=== PATIENT | female | born 1940 | race Caucasian/White ===

== ENCOUNTER 2020-07-28 20:22 | Inpatient (IN) | payer MEDICARE ==
[~2020-07-28 20:22] MED LIST: Heparin 10,000 UNITS/ 10 ML VIAL ONE; Metoprolol Tartrate 5 MG/5 ML VIAL ONE
[2020-07-28] MEDS ORDERED: Metoprolol Tartrate 5 MG/5 ML VIAL ONE (20:29)
[2020-07-28 20:48] LABS: #Basophils 0.1 thou/uL (0.0-0.2); #Eosinphils 0.1 thou/uL (0.0-0.7); #Lymphocytes 2.4 thou/uL (1.20-3.40); #Monocytes 0.7 thou/uL (0.11-0.59); #Neutrophils 4.2 thou/uL (1.40-6.50); %Basophils 0.9 % (0.0-1.0); %Eosinophils 0.9 % (0.0-10.0); %Lymphocytes 32.3 % (21.0-51.0); %Monocytes 9.1 % (0.0-10.0); %Neutrophils 56.9 % (42.0-75.0); Hemoglobin 15.4 g/dL (12.0-16.0); Mean Corpuscular HGB CONC 33.4 g/dL (32.0-36.0); Mean Corpuscular Hemoglobin 32.7 pg (27.0-31.0); Mean Platelet Volume 6.4 fL (7.4-10.4); Platelet Count 303 thou/uL (130-400); RBC Distribution Width 11.2 % (11.5-14.5); White Blood Cell (WBC) Count 7.4 thou/uL (4.8-10.8)
[2020-07-28] MEDS ORDERED: Diltiazem HCl 125 MG, Admixture Fee 1 EACH in Sodium Chloride 0.9% 100 ML IVPB SCH (21:00)
[2020-07-28 21:09] LABS: ALT (SGPT) 16 U/L (8-55); AST (SGOT) 21 U/L (5-34); Albumin 4.2 g/dL (3.4-4.8); Alkaline Phosphatase 89 U/L (40-110); Anion Gap 16 mmol/L (10-20); BUN (Urea Nitrogen) 12 mg/dL (9.8-20.1); Bilirubin, Total 0.3 mg/dL (0.2-1.2); Calc. Creatinine Clearance 0 mL/min (70-130); Calcium 9.3 mg/dL (7.8-10.44); Carbon Dioxide 24 mmol/L (23-31); Chloride 100 mmol/L (98-107); Globulin 3.1 g/dL (2.4-3.5); Glucose 123 mg/dL (83-110); INR-International Normal Ratio 0.9; Magnesium 1.9 mg/dL (1.6-2.6); PTT 26.2 sec (22.9-36.1); Protein, Total 7.3 g/dL (6.0-8.3); Prothrombin Time 12.3 sec (12.0-14.7); Sodium 137 mmol/L (136-145)
[2020-07-28 21:10] LABS: D-Dimer Test 0.62 *mcg/mL (0.27-0.43)
[2020-07-28 21:14] LABS: Potassium 2.9 mmol/L (3.5-5.1)
[2020-07-28 21:30] LABS: CKMB 2.6 ng/mL (0-6.6)
[2020-07-28] MEDS ORDERED: Potassium Chloride 20 MEQ TAB ONE (21:43)
[2020-07-28] MEDS ORDERED: Magnesium 2 GM/50 ML BAG (IN WATER) ONE (21:43)
[2020-07-28] MEDS ORDERED: Potassium Chloride 10 MEQ in Premix Bag 1 BAG IVPB SCH (21:45)
[2020-07-28] MEDS ORDERED: Potassium Chloride 10 MEQ in Sodium Chloride 0.9% 250 ML 250 ML IVPB SCH (23:00)
[2020-07-28] MEDS ORDERED: Enoxaparin Sodium 80 MG/0.8 ML SYRINGE ONE (23:16)
[2020-07-29 01:04] LABS: Troponin I 2.195 ng/mL (< 0.028)
[2020-07-29 02:04] VITALS: BMI 28.3
[2020-07-29 05:38] LABS: Troponin I 3.127 ng/mL (< 0.028)
[2020-07-29 06:23] LABS: SARS-CoV-2 MS2 Positive; SARS-CoV-2 N Gene Negative; SARS-CoV-2 S Gene Negative; SARS-CoV-2 by NAA Not Detected (NotDetected); SARS-CoV-2 orf1ab Negative
[2020-07-29 07:34] LABS: #Basophils 0.1 thou/uL (0.0-0.2); #Eosinphils 0.1 thou/uL (0.0-0.7); #Lymphocytes 2.5 thou/uL (1.20-3.40); #Monocytes 0.8 thou/uL (0.11-0.59); #Neutrophils 4.1 thou/uL (1.40-6.50); %Basophils 1.1 % (0.0-1.0); %Eosinophils 1.6 % (0.0-10.0); %Neutrophils 54.3 % (42.0-75.0); Hemoglobin 13.5 g/dL (12.0-16.0); Mean Corpuscular HGB CONC 34.1 g/dL (32.0-36.0); Mean Corpuscular Hemoglobin 33.1 pg (27.0-31.0); Mean Platelet Volume 6.6 fL (7.4-10.4); Platelet Count 267 thou/uL (130-400); RBC Distribution Width 11.2 % (11.5-14.5); Red Blood Cell (RBC) Count 4.09 mill/uL (4.20-5.40); White Blood Cell (WBC) Count 7.5 thou/uL (4.8-10.8)
[2020-07-29 07:56] LABS: Anion Gap 13 mmol/L (10-20); BUN (Urea Nitrogen) 10 mg/dL (9.8-20.1); Calc. Creatinine Clearance 81 mL/min (70-130); Calcium 9.2 mg/dL (7.8-10.44); Carbon Dioxide 25 mmol/L (23-31); Chloride 105 mmol/L (98-107); Glucose 89 mg/dL (83-110); Magnesium 2.2 mg/dL (1.6-2.6); Potassium 4.1 mmol/L (3.5-5.1); Sodium 139 mmol/L (136-145)
[2020-07-29] MEDS: Aspirin 81 mg Enteric Coated Tablet PO SCH (08:27)
[2020-07-29] MEDS: Enoxaparin Sodium 80 MG/0.8 ML SYRINGE SC SCH ×2 (08:27→21:24)
[2020-07-29] MEDS: ALPRAZolam 0.5 MG TAB PO SCH ×3 (08:27→21:15)
[2020-07-29] MEDS: Potassium Chloride 20 MEQ TAB PO SCH (08:27)
[2020-07-29] MEDS: Multivit, Therapeutic 1 TAB PO SCH (08:27)
[2020-07-29] MEDS: Vit A,C & E/Lutein/Minerals Tablet PO SCH (08:27)
--- NOTE | 2020-07-29 08:30 | RAD ---
PORTABLE CHEST: HISTORY: Chest pain. COMPARISON: 06/22/2018. FINDINGS: Lungs appear clear of infiltrate. Vasculature within normal range. Heart size upper normal with pro minent aortic calcification, unchanged from prior exam. No interval change noted. IMPRESSION: No acute finding. POS: AGW
[2020-07-29] MEDS ORDERED: Non-Formulary Item 1 EACH (Levothyroxine Sodium [Levothyroxine] 100 MCG Capsule) PO SCH (09:00)
--- NOTE | 2020-07-29 10:28 | CON ---
DATE OF CONSULTATION: HISTORY OF PRESENT ILLNESS: The patient is a 79-year-old woman with a history of peripheral vascular disease, who presented with palpitations and chest discomfort. The patient has a previous history of peripheral vascular disease. She was seen 2 years ago and underwent an evaluation. She was found on aortogram to have severe disease in both iliac arteries. The patient was seen in 2018 also with poorly- controlled hypertension. The patient has been on medical therapy. She reports that she has occasional episodes of chest discomfort. These seem to be improved when she takes antacid medication. She also reports having occasional palpitations. The patient was scheduled for Cardiology followup. On the day of admission, the patient developed severe midsternal chest pain, radiating to her left arms. She noted also having rapid palpitations and dizziness. The patient was admitted for further evaluation. The patient has multiple cardiac risk factors including hypertension and dyslipidemia. PAST MEDICAL HISTORY: 1. Lung carcinoma. 2. Colon carcinoma. 3. Renal artery stenosis. 4. Hypertension. 5. Anxiety disorder. PAST SURGICAL HISTORY: Ankle surgery, colorectal surgery, lung surgery, and hernia repair. SOCIAL HISTORY: Long history of tobacco abuse. Quit 10 years ago. FAMILY HISTORY: Positive family history of coronary artery disease. ALLERGIES: STATINS. MEDICATIONS ON ADMISSION: 1. Metoprolol 100 at bedtime. 2. Synthroid 100 daily. 3. Alprazolam 0.5 t.i.d. 4. Aspirin 81 daily. 5. Zetia 10 daily. REVIEW OF SYSTEMS: Ten-point systems otherwise unremarkable. PHYSICAL EXAMINATION: GENERAL: Well-developed woman, in no acute distress. VITAL SIGNS: Blood pressure was 126/60. NECK: Showed no jugular venous distention. LUNGS: Clear to auscultation. HEART: Regular rate and rhythm. Normal S1, S2. No murmurs. ABDOMEN: Nondistended. EXTREMITIES: Showed no edema. VASCULAR: Distal pulses were not palpable. Her femoral pulse was 1+. LABORATORY DATA: White blood cell count was 7.5, hemoglobin 13.5, hematocrit 39.6, and platelets are 267. Sodium was 139, potassium 4.1, chloride 105, bicarbonate 25, BUN 10, creatinine 0.69, glucose is 82. The troponin was 3.2. BNP is 217. Initial EKG revealed rapid atrial fibrillation with a marked ST-T wave abnormality, suggestive of ischemia. Followup EKG revealed sinus bradycardia with ST depression, suggestive of lateral ischemia. IMPRESSION: 1. New-onset atrial fibrillation. 2. Dhu-ZO-zkreike elevation myocardial infarction. 3. Peripheral vascular disease. 4. Hypertension. 5. Dyslipidemia. 6. History of lung carcinoma. 7. Chronic obstructive pulmonary disease. This patient presented with rapid atrial fibrillation and myocardial infarction. She has severe peripheral vascular disease. The patient converted back to sinus rhythm. She is being treated with aspirin and Lovenox. She will continue with beta- callie therapy. We will check an echocardiogram. We will follow this patient with you through her hospitalization. Job ID: [id number] [facility]
[2020-07-29 11:54] LABS: Critical Call Chem Troponin I RESULT DECREASING; Troponin I 2.893 ng/mL (< 0.028)
[2020-07-29] MEDS ORDERED: Ondansetron PF 4 MG/2 ML Vial IVP PRN (15:33)
--- NOTE | 2020-07-29 16:11 | EKG ---
Test Reason : Blood Pressure : / mmHG Vent. Rate : 055 BPM Atrial Rate : 055 BPM P-R Int : 184 ms QRS Dur : 088 ms QT Int : 452 ms P-R-T Axes : 079 029 108 degrees QTc Int : [address] depression, consider subendocardial injury or digitalis effect Abnormal QRS-T angle, consider primary T wave abnormality Abnormal ECG When compared with ECG of 28-JUL-2020 21:39, (Unconfirmed) Incomplete right bundle branch block is no longer Present Confirmed by DR. Eliel ASHLEY ([id number]) on 07/29/2020 4:11:29 PM Referred By: DIOR Confirmed By:DR. Eliel ASHLEY
[2020-07-29 18:01] LABS: Bacteria/HPF None Seen HPF (None Seen); Bilirubin Negative (Negative); Blood, Urine Negative (Negative); Clarity Clear (Clear); Glucose, Urine (Dipstick) Normal (Negative); Ketone, Urine Negative (Negative); Leukocyte Negative Leu/uL (Negative); Nitrite Negative (Negative); Protein, Urine (Dipstick) Negative (Neg-Trace); RBC/HPF 0-3 HPF (0-3); Specific Gravity, Urine 1.009 (1.002-1.036); Squamous Epithelial 0-3 HPF (0-3); Urobilinogen Normal mg/dL (Less than 2); WBC/HPF 0-3 HPF (0-3); pH, Urine 6.5 (5.0-9.0)
[2020-07-29 18:07] LABS: Urine Culture Reflex No No
[2020-07-29] MEDS: Ezetimibe 10 MG TAB PO SCH (21:15)
[2020-07-29] MEDS: Famotidine 20 MG TAB PO SCH (21:15)
--- NOTE | 2020-07-30 00:56 | HP ---
CHIEF COMPLAINT: Indigestion, chest tightness. HISTORY OF PRESENT ILLNESS: Patient is a 79-year-old female with a history of colon cancer and lung cancer, came into the hospital with complaints of chest tightness and shortness of breath. The patient at this time states that she has been having indigestion which has been going on for sometime. However, this time, she felt very tight pressure-like sensation which did not go away. She states that normally she will take antacids and that will usually help to relieve her, however, at this time, she was unable to do so. She has noted a few weeks back that she had some palpitations. However, at this time, she belched and her palpitation improved. She did go to her primary care doctor who then referred her to Cardiology. She states that she has been on 3 rounds of antibiotics; first was Macrobid, second was Keflex, and third was Cipro; however, she had to stop Cipro due to side effects. She currently denies any urinary frequency or any dysuria. PAST MEDICAL HISTORY: She has a history of hypercholesterolemia, hypothyroidism, hypertension, colorectal cancer in 2007, lung cancer in 2009, and hernia x2. PAST SURGICAL HISTORY: She has had a colectomy with colostomy. She has also had lung surgery and status post chemotherapy, no radiation and hernia surgery. SOCIAL HISTORY: She denies any alcohol use, drug use. She is a former smoker. She lives at home with her family and she is a full code. FAMILY HISTORY: Patient's brothers had bypasses, however, no history of heart disease in her family. ALLERGIES: SHE IS ALLERGIC TO MORPHINE AND PENICILLIN. MEDICATIONS: 1. Alprazolam 0.5 mg daily. 2. Losartan 100 mg daily. 3. Levothyroxine 100 mcg daily. 4. Metoprolol 100 mg daily. 5. Chlorthalidone 25 mg daily. 6. Zetia 10 mg as needed. 7. Aspirin 81 mg daily. PHYSICAL EXAMINATION: VITAL SIGNS: Temperature of 100% on room air 16. Initially pulse was 120, currently it is 70. Blood pressure 159/84. GENERAL: She is awake, alert, and oriented x3. Does not appear in distress. HEENT: Normocephalic, atraumatic. No lymphadenopathy noted. CARDIOVASCULAR: She is irregularly irregular, however, rate controlled. LUNGS: Clear to auscultation. No rhonchi or wheezes noted. ABDOMEN: Soft, nontender. Bowel sounds are present x2. She has a colostomy bag. EXTREMITIES: Lower extremity, no edema. Pedal pulses are present x2. LABORATORY RESULTS: WBCs of 7.9, hemoglobin of 13.5, hematocrit of 39.6, platelets of 267. Chemistries; sodium of 139, potassium 4.1, BUN of 10, creatinine 0.69. Her troponin initially was 0.042, went up to highest of 3.22. She also had a TSH that was done which was 0.0224. She had a chest x-ray done, which indicated no acute findings. She also had an EKG which did not show any acute ST elevation. She has had some sinus nichelle. ASSESSMENT AND PLAN: The patient is a very pleasant 79-year-old female who presents to the hospital with complaints of shortness of breath and chest pain. 1. Atrial fibrillation with rapid ventricular response. Her rate was controlled on Cardizem. She was on full-dose Lovenox. We will get Cardiology to see. Her echo has been ordered. Her TSH is very low. I will decrease her thyroid medication from 100 mcg to 75 mcg. 2. Chest tightness and indigestion. This could be secondary to atrial fibrillation, however, given her risk factors, I believe further workup is warranted including possible even a cardiac catheterization. I will leave this up to Cardiology. 3. Hypothyroidism. Her TSH is very low. I will decrease her Synthroid from 100 mcg to 75 mcg. 4. Hypertension. We will continue her home medications. 5. Blood in the urine. She stated that she had blood in the urine and that is why she was put on antibiotics. I have ordered a urine sample here and clearly it is normal. 6. Deep venous thrombosis. Patient is already on Lovenox full dose and we will continue that. Job ID: [id number]
[2020-07-30] MEDS ORDERED: Lidocaine 2% Viscous Solution 10 ML, Aluminum & Magnesium Hydroxide 30 ML SSW SCH (01:30)
[2020-07-30 04:22] LABS: #Eosinphils 0.1 thou/uL (0.0-0.7); #Lymphocytes 2.1 thou/uL (1.20-3.40); #Monocytes 0.5 thou/uL (0.11-0.59); %Basophils 0.7 % (0.0-1.0); %Eosinophils 1.9 % (0.0-10.0); %Monocytes 10.2 % (0.0-10.0); %Neutrophils 42.3 % (42.0-75.0); Hemoglobin 12.7 g/dL (12.0-16.0); Mean Corpuscular HGB CONC 34.4 g/dL (32.0-36.0); Mean Corpuscular Hemoglobin 33.3 pg (27.0-31.0); Mean Corpuscular Volume 96.9 fL (78.0-98.0); Mean Platelet Volume 6.7 fL (7.4-10.4); Platelet Count 255 thou/uL (130-400); RBC Distribution Width 11.2 % (11.5-14.5); White Blood Cell (WBC) Count 4.6 thou/uL (4.8-10.8)
[2020-07-30 04:50] LABS: Anion Gap 13 mmol/L (10-20); BUN (Urea Nitrogen) 9 mg/dL (9.8-20.1); Calc. Creatinine Clearance 77 mL/min (70-130); Calcium 8.9 mg/dL (7.8-10.44); Carbon Dioxide 25 mmol/L (23-31); Chloride 104 mmol/L (98-107); Glucose 91 mg/dL (83-110); Potassium 3.5 mmol/L (3.5-5.1); Sodium 138 mmol/L (136-145)
[2020-07-30 04:57] LABS: Thyroid Stimulating Hormone 0.0282 uIU/mL (0.35-4.94)
[2020-07-30] MEDS: Levothyroxine Sodium 75 MCG TAB PO SCH (05:53)
[2020-07-30 06:36] LABS: Free T4 (Free Thyroxine) 1.28 ng/dL (0.70-1.48)
[2020-07-30] MEDS: Multivit, Therapeutic 1 TAB PO SCH (08:27)
[2020-07-30] MEDS: ALPRAZolam 0.5 MG TAB PO SCH ×3 (08:27→21:58)
[2020-07-30] MEDS: Famotidine 20 MG TAB PO SCH (08:27)
[2020-07-30] MEDS: Potassium Chloride 20 MEQ TAB PO SCH (08:27)
[2020-07-30] MEDS: Aspirin 81 mg Enteric Coated Tablet PO SCH (08:27)
[2020-07-30] MEDS: Enoxaparin Sodium 80 MG/0.8 ML SYRINGE SC SCH ×2 (08:29→21:58)
[2020-07-30] MEDS: Vit A,C & E/Lutein/Minerals Tablet PO SCH (08:29)
--- NOTE | 2020-07-30 11:48 | CT ---
CTA ABDOMEN AND PELVIS AND BILATERAL LOWER EXTREMITIES FOLLOWING A CTA RUNOFF PROTOCOL WITH IV ENHANC EMENT: Multiplanar, multisequential imaging obtained with multiplanar reconstruction and 3D post processing. INDICATION: Peripheral vascular disease. COMPARISON: Comparison is made to CTA runoff procedure of 06/24/2018. FINDINGS: Abdominal aorta shows diffuse atherosclerotic changes and mild ectasia, unchanged from 2018. There i s atherosclerotic calcification with moderate stenosis at the origin of the celiac artery and mild st enosis at the origin of the superior mesenteric artery. These findings are stable. Atherosclerotic calcification at the origin of the right renal artery with moderate stenosis which is stable. No left renal artery stenosis seen. Diffuse atherosclerotic calcification at the aortic bifurcation. 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 There is high-grade stenosis at this location of the left common iliac which appears stable. LEFT LOWER EXTREMITY: The left internal and external iliacs are patent with diffuse atherosclerotic change. Left common femoral shows atherosclerotic change but is patent. Profunda is patent. The left superf icial femoral artery is patent with mild disease in its mid portion without high-grade stenosis. Atherosclerotic calcification with moderate stenosis at the popliteal artery at the joint space. Popliteal trifurcates below the joint space. The peroneal appears to occlude mid calf. Anterior tib ial and posterior tibial are patent to the ankle. RIGHT LOWER EXTREMITY: Right internal and external iliacs are patent with atherosclerotic change. The right common femoral shows atherosclerotic change but patent without significant stenosis. Profunda femoral is patent. Right superficial femoral artery is patent without significant stenosis. Mild stenosis at Cornell's canal. Popliteal shows atherosclerotic change without significant stenosis. Popliteal trifurcates and there is 3-vessel runoff to the ankle. Soft tissue evaluation shows hepatic cysts in the left lobe along the falciform fissure which is stab le. The spleen and pancreas are unremarkable and stable. The left adrenal nodule described previously measuring 11 mm is unchanged. The large cyst in the anterior right kidney is again noted ad is unchanged. This is measured at 7 cm . Numerous cysts from the inferior right kidney appear stable. Several small cysts in the left kidn ey are also stable with the largest seen anteriorly measuring approximately 2 cm. The anterior abdominal wall hernia to the left ob midline was described previously and is again seen. Bowel loops herniate through this defect into the subcutaneous tissue. There is an ostomy at this site with a parastomal hernia. Not significantly changed. No evidence of bowel obstruction or stran gulation. IMPRESSION: 1. Diffuse atherosclerotic disease of the abdominal aorta, aortic bifurcation, and iliac arteries. There is a high-grade stenosis in the left common iliac which is similar to the prior exam. 2. Numerous other abdominal findings appear stable. Right hepatic cyst, bilateral renal cysts, righ t adrenal nodule, and anterior abdominal wall hernia all again noted. POS: AGW
[2020-07-30] MEDS ORDERED: Iopamidol-370 76% 500 ML 1 ML ONE (14:24)
--- NOTE | 2020-07-30 17:09 | PDOC.HOSPP ---
- Subjective Encounter Date: 07/30/20 (f/u a fib with rvr) Encounter Time: 17:07 Subjective: Pt denies any complaints. She reports long-standing leg pain (knee to foot) from chemotherapy - no meds taken for this. She reports pain in her hips/upper legs at times with exertion that is relieved by rest. She denies n/v/abd pain. - Objective Vital Signs & Weight: Vital Signs (12 hours) Temp Pulse Resp BP Pulse Ox 07/30/20 12:00 98.0 F 52 L 16 135/64 98 07/30/20 08:25 95 07/30/20 08:23 98.4 F 58 L 16 147/66 H 98 Weight Weight 162 lb I&O: 07/29/20 07/30/20 07/31/20 06:59 06:59 06:59 Intake Total 260 180 Balance 260 180 Result Diagrams: 07/30/20 03:58 07/30/20 03:58 EKG Reviewed by me: Yes (tele - sinus 50-60's) Hospitalist ROS - Medication Medications: Active Medications Generic Name Dose Route Start Last Admin Trade Name Bryceq PRN Reason Stop Dose Admin Alprazolam 0.5 mg 07/29/20 09:00 07/30/20 15:22 Alprazolam 0.5 Mg Tab PO 0.5 mg TID ANUP Administration Aspirin 81 mg 07/29/20 09:00 07/30/20 08:27 Aspirin 81 Mg Enteric Coated Tablet PO 81 mg DAILY ANUP Administration Ezetimibe 10 mg 07/29/20 21:00 07/29/20 21:15 Ezetimibe 10 Mg Tab PO 10 mg HS ANUP Administration Enoxaparin Sodium 70 mg 07/29/20 09:00 07/30/20 08:29 Enoxaparin Sodium 80 Mg/0.8 Ml Syringe SC 70 mg 0900,2100 ANUP Administration Levothyroxine Sodium 75 mcg 07/30/20 06:00 07/30/20 05:53 Levothyroxine Sodium 75 Mcg Tab PO 75 mcg 0600 ANUP Administration Metoprolol Succinate 100 mg 07/29/20 21:00 07/29/20 21:16 Metoprolol Succinate Xl 100 Mg Tab PO 100 mg HS ANUP Administration Multivitamins 1 tab 07/29/20 09:00 07/30/20 08:27 Multivit, Therapeutic 1 Tab PO 1 tab DAILY ANUP Administration Multivitamins/Minerals 1 tab 07/29/20 09:00 07/30/20 08:29 Vit A,C & E/Lutein/Minerals Tablet PO 1 tab DAILY ANUP Administration Potassium Chloride 20 meq 07/29/20 09:00 07/30/20 08:27 Potassium Chloride 20 Meq Tab PO 08/02/20 09:01 20 meq DAILY ANUP Administration - Exam General Appearance: NAD Heart: RRR, no murmur Respiratory: CTAB, no wheezes Gastrointestinal: soft, non-tender, non-distended, normal bowel sounds Extremities: no cyanosis, no clubbing, no edema Psychiatric: normal affect Hosp A/P (1) NSTEMI (non-ST elevated myocardial infarction) Code(s): I21.4 - NON-ST ELEVATION (NSTEMI) MYOCARDIAL INFARCTION Status: Acute (2) Atrial fibrillation with RVR Code(s): I48.91 - UNSPECIFIED ATRIAL FIBRILLATION Status: Acute (3) Hypothyroid Code(s): E03.9 - HYPOTHYROIDISM, UNSPECIFIED Status: Chronic Qualifiers: Hypothyroidism type: unspecified Qualified Code(s): E03.9 - Hypothyroidism, unspecified (4) Peripheral vascular disease Code(s): I73.9 - PERIPHERAL VASCULAR DISEASE, UNSPECIFIED Status: Chronic (5) Dyslipidemia Code(s): E78.5 - HYPERLIPIDEMIA, UNSPECIFIED Status: Chronic - Plan A fib with RVR - resolved - appreciate cards consult - on beta-callie NSTEMI - has completed 1st part of stress test - on aspirin, statin, beta-callie - echo completed - mild/mod MR and TR with diastolic dysfunction PVD - defer to Cardiology on timing of further evaluation/tx GERD - change to protonix with prn tums Severe neuropathy - pt declines pain meds Hypothyroid - on replacement and over-tx based on low TSH. Medication dose lowered at admission - recommend f/u TSH in 6 weeks. dvt prophy - not needed, is fully anticoagulated with lovenox gi prophy - on protonix for sx code status full reviewed plan of care with patient, no questions or further needs at end of eval.
[2020-07-30] MEDS: Ezetimibe 10 MG TAB PO SCH (21:58)
[2020-07-30] MEDS: Calcium Carbonate 500 MG ChewTAB PO PRN (22:06)
[2020-07-31 04:42] LABS: Anion Gap 13 mmol/L (10-20); BUN (Urea Nitrogen) 9 mg/dL (9.8-20.1); Calc. Creatinine Clearance 78 mL/min (70-130); Calcium 9.5 mg/dL (7.8-10.44); Carbon Dioxide 26 mmol/L (23-31); Chloride 104 mmol/L (98-107); Glucose 92 mg/dL (83-110); Potassium 3.6 mmol/L (3.5-5.1); Sodium 139 mmol/L (136-145)
[2020-07-31] MEDS: Levothyroxine Sodium 75 MCG TAB PO SCH (05:20)
[2020-07-31] MEDS: Potassium Chloride 20 MEQ TAB PO SCH (08:11)
[2020-07-31] MEDS: ALPRAZolam 0.5 MG TAB PO SCH ×3 (08:12→20:28)
[2020-07-31] MEDS: Enoxaparin Sodium 80 MG/0.8 ML SYRINGE SC SCH (08:12)
[2020-07-31] MEDS: Vit A,C & E/Lutein/Minerals Tablet PO SCH (08:12)
[2020-07-31] MEDS: Multivit, Therapeutic 1 TAB PO SCH (08:12)
[2020-07-31] MEDS: Aspirin 81 mg Enteric Coated Tablet PO SCH (08:12)
--- NOTE | 2020-07-31 12:53 | PDOC.HOSPP ---
- Subjective Encounter Date: 07/31/20 (f/u nstemi) Encounter Time: 12:51 Subjective: Pt is without complaints. She reports reflux is better today, did require tums last night. Denies any current cp/n/v/abd pain. - Objective Vital Signs & Weight: Vital Signs (12 hours) Temp Pulse Resp BP Pulse Ox 07/31/20 11:33 98.3 F 62 18 150/67 H 100 07/31/20 07:26 97.9 F 55 L 18 134/62 96 07/31/20 04:00 98.3 F 56 L 16 137/63 95 Weight Weight 165 lb 8 oz I&O: 07/30/20 07/31/20 08/01/20 06:59 06:59 06:59 Intake Total 180 Balance 180 Result Diagrams: 07/30/20 03:58 07/31/20 04:02 EKG Reviewed by me: Yes (tele - sinus 50-70's, no alarms) Hospitalist ROS - Medication Medications: Active Medications Generic Name Dose Route Start Last Admin Trade Name Freq PRN Reason Stop Dose Admin Alprazolam 0.5 mg 07/29/20 09:00 07/31/20 08:12 Alprazolam 0.5 Mg Tab PO 0.5 mg TID ANUP Administration Aspirin 81 mg 07/29/20 09:00 07/31/20 08:12 Aspirin 81 Mg Enteric Coated Tablet PO 81 mg DAILY ANUP Administration Calcium Carbonate 1,000 mg 07/30/20 14:36 07/30/20 22:06 Calcium Carbonate 500 Mg Chewtab PO 1,000 mg DAILYPRN PRN Administration Heartburn or Indigestion Ezetimibe 10 mg 07/29/20 21:00 07/30/20 21:58 Ezetimibe 10 Mg Tab PO 10 mg HS ANUP Administration Enoxaparin Sodium 70 mg 07/29/20 09:00 07/31/20 08:12 Enoxaparin Sodium 80 Mg/0.8 Ml Syringe SC 70 mg 0900,2100 ANUP Administration Levothyroxine Sodium 75 mcg 07/30/20 06:00 07/31/20 05:20 Levothyroxine Sodium 75 Mcg Tab PO 75 mcg 0600 ANUP Administration Metoprolol Succinate 100 mg 07/29/20 21:00 07/30/20 21:58 Metoprolol Succinate Xl 100 Mg Tab PO 100 mg HS ANUP Administration Multivitamins 1 tab 07/29/20 09:00 07/31/20 08:12 Multivit, Therapeutic 1 Tab PO 1 tab DAILY ANUP Administration Multivitamins/Minerals 1 tab 07/29/20 09:00 07/31/20 08:12 Vit A,C & E/Lutein/Minerals Tablet PO 1 tab DAILY ANUP Administration Pantoprazole Sodium 40 mg 07/30/20 21:00 07/30/20 21:58 Pantoprazole 40 Mg Tab PO 40 mg HS ANUP Administration Potassium Chloride 20 meq 07/29/20 09:00 07/31/20 08:11 Potassium Chloride 20 Meq Tab PO 08/02/20 09:01 20 meq DAILY ANUP Administration - Exam General Appearance: NAD Heart: RRR, no murmur Respiratory: CTAB, no wheezes, no rales, no ronchi Gastrointestinal: soft, non-tender, non-distended, normal bowel sounds Extremities: no cyanosis, no clubbing, no edema Psychiatric: normal affect Hosp A/P (1) NSTEMI (non-ST elevated myocardial infarction) Code(s): I21.4 - NON-ST ELEVATION (NSTEMI) MYOCARDIAL INFARCTION Status: Acute (2) Atrial fibrillation with RVR Code(s): I48.91 - UNSPECIFIED ATRIAL FIBRILLATION Status: Resolved (3) Hypothyroid Code(s): E03.9 - HYPOTHYROIDISM, UNSPECIFIED Status: Chronic Qualifiers: Hypothyroidism type: unspecified Qualified Code(s): E03.9 - Hypothyroidism, unspecified (4) Peripheral vascular disease Code(s): I73.9 - PERIPHERAL VASCULAR DISEASE, UNSPECIFIED Status: Chronic (5) Dyslipidemia Code(s): E78.5 - HYPERLIPIDEMIA, UNSPECIFIED Status: Chronic - Plan A fib with RVR - resolved - appreciate cards consult -continue beta-callie NSTEMI - stress test completed, not resulted - on aspirin, zetia, beta-callie - echo completed - mild/mod MR and TR with diastolic dysfunction PVD - defer to Cardiology on timing of further evaluation/tx GERD - continue scheduled protonix and prn tums Severe neuropathy - pt declines pain meds Hypothyroid - on replacement and over-tx based on low TSH. Medication dose lowered at admission - recommend f/u TSH in 6 weeks. dvt prophy - not needed, is fully anticoagulated with lovenox gi prophy - on protonix for sx code status full reviewed plan of care with patient, no questions or further needs at end of eval. anticipate discharge when cleared by cardiology
--- NOTE | 2020-07-31 13:03 | NM ---
EXAM: Nuclear Medicine Cardiac SPECT with EF and wall motion: HISTORY: Chest pain, dyslipidemia, hypertension, history of peripheral vascular disease Protocol: Exam was performed using Lexiscan protocol. The patient is injected with 31.7 millicuries of technetium 99m sestamibi intravenously for stress im ages. The patient is injected with 9.0 millicuries of technetium 99 sestamibi intravenously for resting lisette ges. Multiple SPECT images are performed in the short axis, vertical long axis, and horizontal long axis. FINDINGS: Decreased activity on both stress and rest images in the inferior posterior wall more towards the car diac base. This appears to be primarily infarct. TID:1.12 LHR:0.50 EDV:77 mL EF:66% Wall motion:No significant focal wall motion abnormalities IMPRESSION: Evidence for infarct changes in the inferior posterior wall.
[2020-07-31] MEDS ORDERED: Regadenoson 0.4 MG/5 ML SYRINGE ONE (13:38)
[2020-07-31] MEDS ORDERED: Communication Order-Pharmacy FS SCH (14:30)
[2020-07-31] MEDS: Calcium Carbonate 500 MG ChewTAB PO PRN (17:26)
[2020-07-31] MEDS: Ezetimibe 10 MG TAB PO SCH (20:28)
[2020-08-01 05:39] LABS: Anion Gap 11 mmol/L (10-20); BUN (Urea Nitrogen) 14 mg/dL (9.8-20.1); Calc. Creatinine Clearance 83 mL/min (70-130); Calcium 9.2 mg/dL (7.8-10.44); Carbon Dioxide 27 mmol/L (23-31); Chloride 104 mmol/L (98-107); Glucose 82 mg/dL (83-110); Potassium 3.4 mmol/L (3.5-5.1); Sodium 139 mmol/L (136-145)
[2020-08-01] MEDS: Potassium Chloride 20 MEQ TAB PO SCH (05:51)
[2020-08-01] MEDS: Vit A,C & E/Lutein/Minerals Tablet PO SCH (05:52)
[2020-08-01] MEDS: Multivit, Therapeutic 1 TAB PO SCH (05:52)
[2020-08-01] MEDS: ALPRAZolam 0.5 MG TAB PO SCH ×3 (05:52→21:59)
[2020-08-01] MEDS: Levothyroxine Sodium 75 MCG TAB PO SCH (05:52)
[2020-08-01] MEDS: Aspirin 81 mg Enteric Coated Tablet PO SCH (05:52)
--- NOTE | 2020-08-01 09:04 | PDOC.HOSPP ---
- Subjective Encounter Date: 08/01/20 (f/u nstemi) Encounter Time: 09:02 Subjective: Patient was admitted for atrial fibrillation and NSTEMI. She has been on full dose lovenox, beta-callie, and aspirin. Stress test yesterday was abnormal, and cath planned today. Pt tired this morning. She denies any chest pain.She reports the GERD is better. She does note swelling since being off of her home anti-htn/diuretic. - Objective Vital Signs & Weight: Vital Signs (12 hours) Temp Pulse Resp BP Pulse Ox 08/01/20 07:10 98.1 F 46 L 16 139/60 100 08/01/20 03:37 98.1 F 61 19 111/53 L 97 Weight Weight 166 lb 14.4 oz I&O: 07/31/20 08/01/20 08/02/20 06:59 06:59 06:59 Intake Total 360 Balance 360 Result Diagrams: 07/30/20 03:58 08/01/20 04:00 EKG Reviewed by me: Yes (tele - sinus 50's, was in the 40's early today) Hospitalist ROS - Medication Medications: Active Medications Generic Name Dose Route Start Last Admin Trade Name Freq PRN Reason Stop Dose Admin Alprazolam 0.5 mg 07/29/20 09:00 08/01/20 05:52 Alprazolam 0.5 Mg Tab PO 0.5 mg TID ANUP Administration Aspirin 81 mg 07/29/20 09:00 08/01/20 05:52 Aspirin 81 Mg Enteric Coated Tablet PO 81 mg DAILY ANUP Administration Calcium Carbonate 1,000 mg 07/30/20 14:36 07/31/20 17:26 Calcium Carbonate 500 Mg Chewtab PO 1,000 mg DAILYPRN PRN Administration Heartburn or Indigestion Ezetimibe 10 mg 07/29/20 21:00 07/31/20 20:28 Ezetimibe 10 Mg Tab PO 10 mg HS ANUP Administration Levothyroxine Sodium 75 mcg 07/30/20 06:00 08/01/20 05:52 Levothyroxine Sodium 75 Mcg Tab PO 75 mcg 0600 ANUP Administration Metoprolol Succinate 100 mg 07/29/20 21:00 07/31/20 20:28 Metoprolol Succinate Xl 100 Mg Tab PO 100 mg HS ANUP Administration Multivitamins 1 tab 07/29/20 09:00 08/01/20 05:52 Multivit, Therapeutic 1 Tab PO 1 tab DAILY ANUP Administration Multivitamins/Minerals 1 tab 07/29/20 09:00 08/01/20 05:52 Vit A,C & E/Lutein/Minerals Tablet PO 1 tab DAILY ANUP Administration Pantoprazole Sodium 40 mg 07/30/20 21:00 07/31/20 20:28 Pantoprazole 40 Mg Tab PO 40 mg HS ANUP Administration Potassium Chloride 20 meq 07/29/20 09:00 08/01/20 05:51 Potassium Chloride 20 Meq Tab PO 08/02/20 09:01 20 meq DAILY ANUP Administration - Exam General Appearance: NAD Heart: RRR, no murmur Respiratory: CTAB, no wheezes, no rales, no ronchi Gastrointestinal: soft, non-tender, non-distended, normal bowel sounds Extremities - other findings: trace pitting edema bilateral Psychiatric: normal affect Hosp A/P (1) NSTEMI (non-ST elevated myocardial infarction) Code(s): I21.4 - NON-ST ELEVATION (NSTEMI) MYOCARDIAL INFARCTION Status: Acute (2) Atrial fibrillation with RVR Code(s): I48.91 - UNSPECIFIED ATRIAL FIBRILLATION Status: Resolved (3) Hypothyroid Code(s): E03.9 - HYPOTHYROIDISM, UNSPECIFIED Status: Chronic Qualifiers: Hypothyroidism type: unspecified Qualified Code(s): E03.9 - Hypothyroidism, unspecified (4) Peripheral vascular disease Code(s): I73.9 - PERIPHERAL VASCULAR DISEASE, UNSPECIFIED Status: Chronic (5) Dyslipidemia Code(s): E78.5 - HYPERLIPIDEMIA, UNSPECIFIED Status: Chronic - Plan A fib with RVR - resolved - appreciate cards consult -continue beta-callie NSTEMI - awaiting cath today due to abnormal stress test - on aspirin, zetia, beta-callie - echo completed - mild/mod MR and TR with diastolic dysfunction PVD - defer to Cardiology on timing of further evaluation/tx GERD - continue scheduled protonix and prn tums Severe neuropathy - pt declines pain meds Hypothyroid - on replacement and over-tx based on low TSH. Medication dose lowered at admission - recommend f/u TSH in 6 weeks. Hypokalemia - replace dvt prophy - not needed, is fully anticoagulated with lovenox gi prophy - on protonix for sx code status full reviewed plan of care with patient, no questions or further needs at end of eval. anticipate discharge when cleared by cardiology
[2020-08-01] MEDS ORDERED: Midazolam HCl 2 mg/2 ml Vial ONE (10:08)
[2020-08-01] MEDS ORDERED: Fentanyl 100 MCG/2 ML VIAL ONE (10:09)
[2020-08-01] MEDS ORDERED: Nitroglycerin 0.4 MG TAB (25 Tab Bottle) SL PRN (11:06)
[2020-08-01] MEDS ORDERED: Sodium Chloride 0.9% 200 ML IV PRN (11:06)
[2020-08-01] MEDS ORDERED: Iopamidol 370 76% 100 ML VIAL ONE (11:36)
[2020-08-01] MEDS ORDERED: Potassium Chloride 20 MEQ TAB PO SCH (14:00)
[2020-08-01] MEDS ORDERED: Communication Order-Pharmacy FS SCH (17:15)
[2020-08-01] MEDS: Calcium Carbonate 500 MG ChewTAB PO PRN (21:59)
[2020-08-01] MEDS: Ezetimibe 10 MG TAB PO SCH (21:59)
[2020-08-01] MEDS: Milk Of Magnesia 30 ML UDCUP PO PRN (22:02)
[2020-08-02 04:47] LABS: Anion Gap 13 mmol/L (10-20); BUN (Urea Nitrogen) 13 mg/dL (9.8-20.1); Calc. Creatinine Clearance 76 mL/min (70-130); Calcium 9.2 mg/dL (7.8-10.44); Carbon Dioxide 28 mmol/L (23-31); Chloride 102 mmol/L (98-107); Glucose 90 mg/dL (83-110); Potassium 3.6 mmol/L (3.5-5.1); Sodium 139 mmol/L (136-145)
[2020-08-02] MEDS ORDERED: Sodium Chloride 0.9% 1,000 ML IV SCH ×2 (06:00→07:56)
[2020-08-02] MEDS: Multivit, Therapeutic 1 TAB PO SCH (06:12)
[2020-08-02] MEDS: ALPRAZolam 0.5 MG TAB PO SCH ×3 (06:12→20:54)
[2020-08-02] MEDS: Levothyroxine Sodium 75 MCG TAB PO SCH (06:12)
[2020-08-02] MEDS: Aspirin 81 mg Enteric Coated Tablet PO SCH (06:12)
[2020-08-02] MEDS: Vit A,C & E/Lutein/Minerals Tablet PO SCH (06:12)
[2020-08-02] MEDS ORDERED: Heparin 10,000 UNITS/ 10 ML VIAL ONE (06:37)
[2020-08-02] MEDS ORDERED: Midazolam HCl 2 mg/2 ml Vial ONE (07:07)
[2020-08-02] MEDS ORDERED: Fentanyl 100 MCG/2 ML VIAL ONE ×2 (07:07→09:24)
[2020-08-02] MEDS ORDERED: Bivalirudin 250 MG VIAL ONE (07:08)
[2020-08-02] MEDS ORDERED: Nitroglycerin 100MG/250ML BOT 0 ML ONE (07:10)
[2020-08-02] MEDS ORDERED: Atropine Sulfate 1 mg/10 ml Syringe ONE ×2 (07:19→12:11)
[2020-08-02] MEDS ORDERED: Clopidogrel Bisulfate 300 MG TAB ONE (07:29)
[2020-08-02 08:56] LABS: Cardiac Risk 3.1 (Less than 4.5)
[2020-08-02] MEDS ORDERED: Fentanyl 100 MCG/2 ML VIAL SLOW IVP PRN (09:55)
--- NOTE | 2020-08-02 10:49 | PDOC.HOSPP ---
- Subjective Encounter Date: 08/02/20 Encounter Time: 15:30 Subjective: Patient up in bed no complaints. - Objective Vital Signs & Weight: Vital Signs (12 hours) Temp Pulse Resp BP Pulse Ox 08/02/20 08:05 92 L 08/02/20 04:00 98.1 F 96 18 110/52 L 92 L Weight Weight 73.21 kg I&O: 08/01/20 08/02/20 08/03/20 06:59 06:59 06:59 Intake Total 360 720 Output Total 550 Balance 360 170 Result Diagrams: 08/03/20 04:04 08/03/20 04:04 Hospitalist ROS - Review of Systems Cardiovascular: denies: chest pain, palpitations, orthopnea, paroxysmal noc. dyspnea, edema, light headedness, other Gastrointestinal: denies: nausea, vomiting, abdominal pain, diarrhea, constipation, melena, hematochezia, other Genitourinary: denies: dysuria, frequency, incontinence, hematuria, retention, other - Medication Medications: Active Medications Generic Name Dose Route Start Last Admin Trade Name Freq PRN Reason Stop Dose Admin Alprazolam 0.5 mg 07/29/20 09:00 08/02/20 06:12 Alprazolam 0.5 Mg Tab PO 0.5 mg TID ANUP Administration Aspirin 81 mg 07/29/20 09:00 08/02/20 06:12 Aspirin 81 Mg Enteric Coated Tablet PO 81 mg DAILY ANUP Administration Calcium Carbonate 1,000 mg 07/30/20 14:36 08/01/20 21:59 Calcium Carbonate 500 Mg Chewtab PO 1,000 mg DAILYPRN PRN Administration Heartburn or Indigestion Ezetimibe 10 mg 07/29/20 21:00 08/01/20 21:59 Ezetimibe 10 Mg Tab PO 10 mg HS ANUP Administration Sodium Chloride 1,000 mls @ 125 mls/hr 08/02/20 07:56 08/02/20 10:00 Normal Saline 0.9% IV 08/02/20 12:00 Not Given .Q8H ANUP Levothyroxine Sodium 75 mcg 07/30/20 06:00 08/02/20 06:12 Levothyroxine Sodium 75 Mcg Tab PO 75 mcg 0600 ANUP Administration Magnesium Hydroxide 30 ml 08/01/20 17:23 08/01/20 22:02 Milk Of Magnesia 30 Ml Udcup PO 30 ml DAILYPRN PRN Administration Constipation Metoprolol Succinate 100 mg 07/29/20 21:00 08/01/20 21:59 Metoprolol Succinate Xl 100 Mg Tab PO 100 mg HS ANUP Administration Multivitamins 1 tab 07/29/20 09:00 08/02/20 06:12 Multivit, Therapeutic 1 Tab PO 1 tab DAILY ANUP Administration Multivitamins/Minerals 1 tab 07/29/20 09:00 08/02/20 06:12 Vit A,C & E/Lutein/Minerals Tablet PO 1 tab DAILY ANUP Administration Pantoprazole Sodium 40 mg 07/30/20 21:00 08/01/20 22:00 Pantoprazole 40 Mg Tab PO 40 mg HS ANUP Administration - Exam Heart: negative: RRR, no murmur, no gallops, no rubs, normal peripheral pulses, irregular, diminshed peripheral pulses, murmur present, II/IV, III/IV Respiratory: negative: CTAB, no wheezes, no rales, no ronchi, normal chest expansion, no tachypnea, normal percussion, rales, rhonchi, tachypneic, wheezes Gastrointestinal: negative: soft, non-tender, non-distended, normal bowel sounds, no palpable masses, no hepatomegaly, no splenomegaly, no bruit, no guarding, no rigidity, tender to palpation, distended, diminished bowl sounds, voluntary guarding Extremities - other findings: Right groin incision intact. Right and left pedal pulses present Hosp A/P (1) NSTEMI (non-ST elevated myocardial infarction) Code(s): I21.4 - NON-ST ELEVATION (NSTEMI) MYOCARDIAL INFARCTION Status: Acute (2) Dyslipidemia Code(s): E78.5 - HYPERLIPIDEMIA, UNSPECIFIED Status: Chronic (3) Hypothyroid Code(s): E03.9 - HYPOTHYROIDISM, UNSPECIFIED Status: Chronic Qualifiers: Hypothyroidism type: unspecified Qualified Code(s): E03.9 - Hypothyroidism, unspecified (4) Peripheral vascular disease Code(s): I73.9 - PERIPHERAL VASCULAR DISEASE, UNSPECIFIED Status: Chronic (5) Atrial fibrillation with RVR Code(s): I48.91 - UNSPECIFIED ATRIAL FIBRILLATION Status: Resolved - Plan Coronary artery disease - Stent placement today A fib with RVR - continue Beta callie Hypokalemia - resolved 08/02 status post PCI to proximal to mid circumflex. We will continue current aspirin/Plavix/Zetia. Patient's Synthroid adjusted based on TSH. will talk to cardio since pt was in afib will need AC.
[2020-08-02] MEDS ORDERED: Iopamidol 370 76% 50 ML VIAL FS ONE (12:49)
[2020-08-02] MEDS ORDERED: Iopamidol 370 76% 100 ML VIAL ONE (12:49)
[2020-08-02] MEDS: Clopidogrel Bisulfate 75 MG TAB PO SCH (12:54)
[2020-08-02] MEDS: Hydrochlorothiazide 25 MG TAB PO SCH (12:54)
[2020-08-02] MEDS: Potassium Chloride 20 MEQ TAB PO SCH (12:55)
[2020-08-02] MEDS: Ezetimibe 10 MG TAB PO SCH (20:54)
[2020-08-02] MEDS: Milk Of Magnesia 30 ML UDCUP PO PRN (20:57)
[2020-08-03 04:20] LABS: #Basophils 0.1 thou/uL (0.0-0.2); #Eosinphils 0.1 thou/uL (0.0-0.7); #Lymphocytes 1.9 thou/uL (1.20-3.40); #Monocytes 0.8 thou/uL (0.11-0.59); %Basophils 1.1 % (0.0-1.0); %Eosinophils 1.8 % (0.0-10.0); %Lymphocytes 28.1 % (21.0-51.0); %Monocytes 11.4 % (0.0-10.0); %Neutrophils 57.6 % (42.0-75.0); Hemoglobin 11.5 g/dL (12.0-16.0); Mean Corpuscular HGB CONC 33.3 g/dL (32.0-36.0); Mean Corpuscular Hemoglobin 32.3 pg (27.0-31.0); Mean Corpuscular Volume 97.1 fL (78.0-98.0); Mean Platelet Volume 6.8 fL (7.4-10.4); Platelet Count 243 thou/uL (130-400); RBC Distribution Width 11.3 % (11.5-14.5); Red Blood Cell (RBC) Count 3.55 mill/uL (4.20-5.40); White Blood Cell (WBC) Count 6.9 thou/uL (4.8-10.8)
[2020-08-03 04:43] LABS: ALT (SGPT) 106 U/L (8-55); AST (SGOT) 100 U/L (5-34); Albumin 3.2 g/dL (3.4-4.8); Alkaline Phosphatase 63 U/L (40-110); Anion Gap 12 mmol/L (10-20); BUN (Urea Nitrogen) 12 mg/dL (9.8-20.1); Bilirubin, Total 0.5 mg/dL (0.2-1.2); Calc. Creatinine Clearance 80 mL/min (70-130); Calcium 8.7 mg/dL (7.8-10.44); Carbon Dioxide 26 mmol/L (23-31); Chloride 104 mmol/L (98-107); Globulin 2.2 g/dL (2.4-3.5); Glucose 91 mg/dL (83-110); Potassium 3.5 mmol/L (3.5-5.1); Protein, Total 5.4 g/dL (6.0-8.3); Sodium 138 mmol/L (136-145)
[2020-08-03] MEDS: Levothyroxine Sodium 75 MCG TAB PO SCH (05:41)
[2020-08-03] MEDS: Aspirin 81 mg Enteric Coated Tablet PO SCH (08:43)
[2020-08-03] MEDS: ALPRAZolam 0.5 MG TAB PO SCH (08:43)
[2020-08-03] MEDS: Multivit, Therapeutic 1 TAB PO SCH (08:43)
[2020-08-03] MEDS: Clopidogrel Bisulfate 75 MG TAB PO SCH (08:43)
[2020-08-03] MEDS: Hydrochlorothiazide 25 MG TAB PO SCH (08:43)
[2020-08-03] MEDS: Vit A,C & E/Lutein/Minerals Tablet PO SCH (08:43)
[2020-08-03] MEDS ORDERED: Apixaban 5 MG TAB PO SCH (09:00)
[2020-08-03 11:30] VITALS: BP 153/69; TEMP 98.2
--- NOTE | 2020-08-04 08:21 | PDOC.DS.DS ---
Provider - Provider Date of Admission: 07/29/20 10:44 Date of Discharge: 08/03/20 Admitting Provider: Uriel Becker DO Consultations: Cardiology Course - Hospital Course Hospital Course: Patient is a very pleasant 79-year-old female who initially presented to the hospital for chest tightness was noted to be in A. fib with RVR patient converted back to sinus. She was initially on a Cardizem drip. Cardiology was consulted. She also had elevated troponins. She initially underwent a stress test which was abnormal followed by a cardiac catheterization and a stent placed to proximal mid circumflex artery. Patient had a CT a of the aorta which indicated diffuse atherosclerotic disease of the abdominal aorta with high-grade stenosis in the left common iliac. Patient was asked to follow-up with CV surgery as outpatient. Given mildly elevated LFTs patient will not be started on statin in this admission she is currently on Zetia she will be started on statin once she follows up with cardiology as outpatient. Patient also was noted to take aspirin Plavix and Eliquis until Saturday and then she is going to be only on Plavix and Eliquis this was discussed in detail with the patient and patient's . Risks of bleeding also was discussed with patient on Eliquis. I did call the patient and updated her about her CTA aorta runoff results and asked her to follow-up with CV surgery, number also was provided and also mentioned to cardiology. She is aware of her findings of the adrenal nodules and renal cyst. - Labs Lab Results: 08/03/20 04:04 08/03/20 04:04 Abnormal Lab Results - Last 48 hrs 08/02/20 11:00: Activated Clotting Time 175 H 08/03/20 04:04: AST 100 H, ALT 106 H, Serum Total Protein 5.4 L, Albumin 3.2 L, Globulin 2.2 L 08/03/20 04:04: RBC 3.55 L, Hgb 11.5 L, Hct 34.4 L, MCH 32.3 H, RDW 11.3 L, MPV 6.8 L, Monocytes % 11.4 H, Basophils % 1.1 H, Monocytes # 0.8 H - Physical Exam Vitals: Weight Weight 163 lb 12.8 oz Physical Exam: The patient was seen and examined on the day of discharge. Problem - Problem (1) NSTEMI (non-ST elevated myocardial infarction) Code(s): I21.4 - NON-ST ELEVATION (NSTEMI) MYOCARDIAL INFARCTION Status: Acute (2) Dyslipidemia Code(s): E78.5 - HYPERLIPIDEMIA, UNSPECIFIED Status: Chronic (3) Hypothyroid Code(s): E03.9 - HYPOTHYROIDISM, UNSPECIFIED Status: Chronic Qualifiers: Hypothyroidism type: unspecified Qualified Code(s): E03.9 - Hypothyroidism, unspecified (4) Peripheral vascular disease Code(s): I73.9 - PERIPHERAL VASCULAR DISEASE, UNSPECIFIED Status: Chronic (5) Atrial fibrillation with RVR Code(s): I48.91 - UNSPECIFIED ATRIAL FIBRILLATION Status: Resolved Plan - Discharge Medications Prescriptions: Ubidecarenone [Co Q-10] 400 mg PO DAILY #30 capsule Apixaban [Eliquis] 5 mg PO BID #60 tab Clopidogrel Bisulfate [Plavix] 75 mg PO DAILY #30 tab Levothyroxine Sodium [Synthroid] 75 mcg PO 0600 #30 tab Home Medications: Medication Instructions Recorded Confirmed Type ALPRAZolam [Alprazolam] 0.5 mg PO TID 07/29/20 07/29/20 History Aspirin [Ecotrin Low Strength] 81 mg PO DAILY 07/29/20 07/29/20 History Ezetimibe [Zetia] 10 mg PO HS 07/29/20 07/29/20 History Metoprolol Succinate 100 mg PO HS 07/29/20 07/29/20 History Multivitamin/Iron/Folic Acid 1 each PO DAILY 07/29/20 07/29/20 History [Centrum Adults Tablet] Vitc/E/Zinc/Copper/Lutein/Zeax 1 each PO DAILY 07/29/20 07/29/20 History [Icaps Areds2 Tablet] Amiloride/Hydrochlorothiazide 1 tablet PO DAILY 07/30/20 07/30/20 History [Amiloride HCl-Hctz 5-50 mg Tab] Apixaban [Eliquis] 5 mg PO BID #60 tab 08/03/20 Rx Clopidogrel Bisulfate [Plavix] 75 mg PO DAILY #30 tab 08/03/20 Rx Levothyroxine Sodium [Synthroid] 75 mcg PO 0600 #30 tab 08/03/20 Rx Ubidecarenone [Co Q-10] 400 mg PO DAILY #30 capsule 12/09/20 Rx Allergies: morphine Allergy (Verified 07/29/20 14:59) Penicillins Allergy (Verified 08/01/20 07:13) - Discharge Instructions Discharge Instructions:: YOU WILL NEED TO CHECK YOUR THYROID BLOOD WORK IN 4-6 WEEKS SINCE I MADE CHANGES IN YOUR THYROID MEDICATION. PLEASE STOP TAKING ASPIRIN ON saturday. CONTINUE TAKING PLAVIX AND ELIQUIS FOCUS: Transition from Acute Care after Discharge GOAL: Successful transition to care in the community YOUR TASKS: (1) review all information outlined in your discharge packet (2) follow any instructions outlined in your discharge packet (3) contact your primary care provider if you have questions or need additional assistance See patient discharge instruction sheet for detailed teaching. Patient verbalizes understanding of medications and is able to verbalize follow-up care. See Discharge Plan for additional discharge information. Patient secured in private vehicle prior to departure. Activity:: Activity as Tolerated Nourishment:: Heart Healthy Diet - Follow up Plan Referrals: [facility], Cardiac Rehabilitation [Other] ([id number]. Your information will be faxed to this facility for f/u. If you do not hear from them in a week, please call them at your earliest convience.) Juan M Wyatt MD [Active] - 08/05/20 11:00 am (THIS WILL BE A PHONE CALL- TELEMED VISIT.) Julio Cesar Browning MD [Active] - 08/24/20 2:00 pm Disposition: HOME Quality - Care Measures CORE MEASURES:: N/A
--- NOTE | 2020-08-05 06:05 | PQF ---
CLINICAL DOCUMENTATION CLARIFICATION FORM: Dear : Krissy Lopez Date / Time: 08/05/20 0605 Please exercise your independent, professional judgment in responding to the clarification form. Clinical indicators are provided on the bottom of this form for your review In your clinical opinion based on clinical findings below, can you please specify type of NSTEMI if: Please check appropriate box(es): [ x] Type 1 [place] (NSTEMI) [ ] Type 2 [place] (T2MI) secondary to Atrial Fibrillation [ ] Other diagnosis, please specify [ ] Unable to determine Physician Signature: Date/Time: For continuity of documentation, please document condition throughout progress notes and discharge summary. Thank You. To be completed by CDI/Coding staff for physician review: Present Clinical Indicators - Signs / Symptoms / Labs Results and Location in Medical Record [X] CK-MB 2.6, BNP 217.0, Troponin 0.042; [id number] Laboratory 07/28 [X] BP 159/84, Pulse 120, Resp 20 Vital signs 07/29 [X] Compliant of chest tightness and SOB H&P p1 07/29 Dr Lopez [X] Chest tightness and indigestion this could be 2/2 Atrial fibrillation H&P p2 07/29 Dr Lopez [X] NSTEMI Consult 07/29 [X] Initial EKG revealed rapid atrial fibrillation with a marked ST-T wave abnormality suggestive of ischemia Consult 07/29 Present Risk Factors Results and Location in Medical Record [X] 79 year-old Female H&P p1 07/29 Dr Lopez [X] Hx of Lung and colon cancer H&P p1 07/29 Dr Lopez [X] HTN H&P p1 07/29 Dr Lopez [X] Hypercholesterolemia H&P p1 07/29 Dr Lopez [X] Former Smoker H&P p1 07/29 Dr Lopez [X] Afib H&P p2 07/29 Dr Lopez [X] HLD Consult 07/29 Present Treatments Results and Location in Medical Record [X] Eliquis 5 mg oral NOV 04 [X] Aspirin 81 mg iral NOV 04 [X] Lovenox 80 mg sc NOV 04 [X] Nitrostat 0.4 mg SL NOV 04 [X] IV Nitroglycerine 100 mg NOV 04 [X] KRISTINA with [facility] Cardiac Procedure 08/02 Dr Park [X] [facility] Cardiac Procedure 08/01 Dr Browning [X] Cardiac Consult Consult Dr Browning 07/29 CDS/Receptionist Clerk Signature: Екатерина Lisa Meléndez Phone #: [phone] Date/Time: 08/05/2020 0605 This is a permanent part of the Medical Record [facility]
== END 2020-08-03 13:51 | disposition home or self-care (01) | DRG 247 ==
LOC: ERS 20:22 → 2NO 22:03 → OBSVTOIN 07-29 10:44
PROVIDERS: ADMIT Family Medicine; ATTEND Family Medicine
PROC: 4A023N7 Measurement of Cardiac Sampling and Pressure, Left Heart, Percutaneous Approach (ICD-10-PCS; 2020-08-01)
PROC: B2111ZZ Fluoroscopy of Multiple Coronary Arteries using Low Osmolar Contrast (ICD-10-PCS; 2020-08-01)
PROC: B2151ZZ Fluoroscopy of Left Heart using Low Osmolar Contrast (ICD-10-PCS; 2020-08-01)
PROC: 027034Z Dilation of Coronary Artery, One Artery with Drug-eluting Intraluminal Device, Percutaneous Approach (ICD-10-PCS; principal; 2020-08-02)
DX: I21.4 Non-ST elevation (NSTEMI) myocardial infarction (principal); I48.91 Unspecified atrial fibrillation; Z20.828 Contact with and (suspected) exposure to other viral communicable diseases; I10 Essential (primary) hypertension; F41.9 Anxiety disorder, unspecified; I70.1 Atherosclerosis of renal artery; I73.9 Peripheral vascular disease, unspecified; J44.9 Chronic obstructive pulmonary disease, unspecified; E78.00 Pure hypercholesterolemia, unspecified; E03.9 Hypothyroidism, unspecified; K21.9 Gastro-esophageal reflux disease without esophagitis; G62.9 Polyneuropathy, unspecified; I08.1 Rheumatic disorders of both mitral and tricuspid valves; E87.6 Hypokalemia; N28.1 Cyst of kidney, acquired; I70.0 Atherosclerosis of aorta; E27.8 Other specified disorders of adrenal gland; Z87.891 Personal history of nicotine dependence; Z88.8 Allergy status to other drugs, medicaments and biological substances; Z79.899 Other long term (current) drug therapy; Z79.82 Long term (current) use of aspirin; Z85.038 Personal history of other malignant neoplasm of large intestine; Z85.118 Personal history of other malignant neoplasm of bronchus and lung; Z90.49 Acquired absence of other specified parts of digestive tract; Z92.21 Personal history of antineoplastic chemotherapy; Z88.5 Allergy status to narcotic agent; Z88.0 Allergy status to penicillin; Z79.890 Hormone replacement therapy
CPT/HCPCS: 36415; 71045; 75635; 76942; 78452; 80048; 80053; 80061; 81001; 82553; 83735; 83880; 84439; 84443; 84481; 84484; 85025; 85347; 85379; 85610; 85730; 86850; 86900; 86901; 87635; 92928; 93005; 93010; 93017; 93306; 93454; 93458; 93798; 94760; 96365; 96366; 96372; 96375; 96376; 99152; 99153; A9500; C1874; C9600; G0378; J0461; J0583; J1644; J1650; J2250; J2785; J3010; J3475; J3480; J3490; J7050; Q9967; U0003